=== PATIENT | male | born 1945 | race Caucasian/White ===

== ENCOUNTER 2017-04-03 08:53 | Outpatient (CLI) | payer MEDICARE ==
--- NOTE | 2017-04-03 14:16 | PET ---
PET CT OF BRAIN: Date: 04/03/17 HISTORY: 72-year-old male with other frontotemporal dementia. TECHNIQUE: PET CT of the brain was performed following the intravenous administration of 9.6 mCi [id number] in the right antecubital fossa. Imaging was performed after an uptake interval of 55 minutes. FINDINGS: There is hypometabolism in the temporal lobes bilaterally, right greater than left. There is normal F DG localization in the remainder of the brain. IMPRESSION: Bilateral temporal lobe hypometabolism. POS: HUSAM
== END 2017-04-03 08:54 | disposition home or self-care (01) ==
LOC: PET 08:53
PROVIDERS: ATTEND Psychiatry & Neurology Neurology
DX: G31.09 Other frontotemporal neurocognitive disorder (principal); R63.8 Other symptoms and signs concerning food and fluid intake
CPT/HCPCS: 78608; A9552

== ENCOUNTER 2023-07-04 12:34 | Emergency (ER) | payer MEDICARE ==
[2023-07-04 13:35] LABS: #Basophils 0.04 10x3/uL (0.0-0.2); %Basophils 0.4 % (0.0-1.0); %Eosinophils 1.2 % (0.0-10.0); %Lymphocytes 18.5 % (21.0-51.0); %Monocytes 6.8 % (0.0-10.0); %Neutrophils 72.8 % (42.0-75.0); Hematocrit 44.7 % (42.0-52.0); Hemoglobin 14.9 g/dL (14.0-18.0); Mean Corpuscular HGB CONC 33.3 g/dL (32.0-36.0); Mean Corpuscular Hemoglobin 30.2 pg (27.0-31.0); Mean Corpuscular Volume 90.5 fL (78.0-98.0); Mean Platelet Volume 8.5 fL (7.4-10.4); Platelet Count 222 10x3/uL (130-400); RBC Distribution Width 12.9 % (11.5-14.5); Red Blood Cell (RBC) Count 4.94 mill/uL (4.70-6.10)
[2023-07-04 13:43] LABS: Globulin 3.1 g/dL (2.4-3.5)
[2023-07-04 13:48] LABS: ALT (SGPT) 21 U/L (8-55); AST (SGOT) 15 U/L (5-34); Acetaminophen Less than 10 mcg/mL (10.0-30.0); Albumin 3.9 g/dL (3.4-4.8); Alcohol Less than 10.0 mg/dL (Less than 10); Alkaline Phosphatase 104 U/L (40-110); Anion Gap 12 mmol/L (10-20); BUN (Urea Nitrogen) 12 mg/dL (8.4-25.7); Bilirubin, Total 0.7 mg/dL (0.2-1.2); Calc. Creatinine Clearance 0 mL/min (70-130); Carbon Dioxide 28 mmol/L (23-31); Chloride 103 mmol/L (98-107); Estimated GFR 89; Glucose 124 mg/dL (83-110); Potassium 3.9 mmol/L (3.5-5.1); Salicylate Less than 8.0 mg/dL (15.0-30.0); Sodium 139 mmol/L (136-145)
[2023-07-04] MEDS ORDERED: Haloperidol Lactate 5 MG/ML VIAL ONE ×2 (13:53→15:14)
[2023-07-04 13:58] LABS: Troponin I Less than 0.010 ng/mL (< 0.028)
[2023-07-04 14:07] LABS: Bacteria/HPF None Seen HPF (None Seen); Bilirubin Negative (Negative); Blood, Urine Negative (Negative); CAUTI Indications for Culture Alt mental st,lethar; Clarity Clear (Clear); Glucose, Urine (Dipstick) Normal (Negative); Ketone, Urine Negative (Negative); Leukocyte Negative Leu/uL (Negative); Nitrite Negative (Negative); Protein, Urine (Dipstick) Negative (Neg-Trace); RBC/HPF None Seen HPF (0-3); Specific Gravity, Urine 1.009 (1.002-1.036); Squamous Epithelial 0-3 HPF (0-3); Urobilinogen Normal mg/dL (Less than 2); WBC/HPF None Seen HPF (0-3); pH, Urine 6.5 (5.0-9.0)
[2023-07-04 14:10] LABS: Urine Culture Reflex No No
[2023-07-04 14:15] LABS: Amphetamine Not Detected (NotDetected); Barbiturates Screen Not Detected (NotDetected); Benzodiazepine Screen Detected (NotDetected); Cocaine Metabolite Screen Not Detected (NotDetected); Methadone Not Detected (NotDetected); Methamphetamine Not Detected (NotDetected); Opiate Screen Not Detected (NotDetected); Oxycodone Screen Not Detected (NotDetected); Phencyclidine (PCP) Not Detected (NotDetected); THC/Cannabinoid Screen Not Detected (NotDetected); Tricyclic Screen Not Detected (NotDetected)
[2023-07-04] MEDS ORDERED: traZODone HCl 50 MG TAB ONE (21:29)
== END 2023-07-05 00:09 ==
LOC: ERS 12:34
DX: R45.1 Restlessness and agitation (principal); F03.90 Unspecified dementia, unspecified severity, without behavioral disturbance, psychotic disturbance, mood disturbance, and anxiety; I10 Essential (primary) hypertension
CPT/HCPCS: 36415; 51701; 70450; 71045; 80053; 80306; 80307; 81001; 82140; 83605; 83880; 84443; 84484; 85025; 93005; 96372; J1630

== ENCOUNTER 2023-08-15 15:52 | Emergency (ER) | payer MEDICARE ==
[2023-08-15] MEDS ORDERED: Haloperidol Lactate 5 MG/ML VIAL ONE (17:24)
== END 2023-08-15 21:58 ==
LOC: ERS 15:52
DX: Z00.00 Encounter for general adult medical examination without abnormal findings (principal); I10 Essential (primary) hypertension; I25.2 Old myocardial infarction
CPT/HCPCS: 82962; 99283; J1630; 36416

== ENCOUNTER 2023-09-16 15:33 | Emergency (ER) | payer MEDICARE ==
[2023-09-16] MEDS ORDERED: risperiDONE 1 MG TAB ONE (16:16)
[2023-09-16 16:35] LABS: #Basophils 0.03 10x3/uL (0.0-0.2); %Basophils 0.3 % (0.0-1.0); %Eosinophils 2.4 % (0.0-10.0); %Lymphocytes 22.2 % (21.0-51.0); %Monocytes 7.7 % (0.0-10.0); %Neutrophils 67.1 % (42.0-75.0); Hematocrit 39.9 % (42.0-52.0); Hemoglobin 13.2 g/dL (14.0-18.0); Mean Corpuscular HGB CONC 33.1 g/dL (32.0-36.0); Mean Corpuscular Hemoglobin 29.3 pg (27.0-31.0); Mean Corpuscular Volume 88.7 fL (78.0-98.0); Mean Platelet Volume 8.7 fL (7.4-10.4); Platelet Count 211 10x3/uL (130-400); RBC Distribution Width 12.5 % (11.5-14.5)
[2023-09-16 16:57] LABS: ALT (SGPT) 16 U/L (8-55); AST (SGOT) 15 U/L (5-34); Albumin 3.4 g/dL (3.4-4.8); Alkaline Phosphatase 74 U/L (40-110); Anion Gap 10 mmol/L (10-20); BUN (Urea Nitrogen) 19 mg/dL (8.4-25.7); Bilirubin, Total 0.3 mg/dL (0.2-1.2); Calc. Creatinine Clearance 0 mL/min (70-130); Calcium 9.7 mg/dL (7.8-10.44); Carbon Dioxide 28 mmol/L (23-31); Chloride 105 mmol/L (98-107); Estimated GFR 89; Globulin 2.4 g/dL (2.4-3.5); Glucose 100 mg/dL (83-110); Lipase 33 U/L (8-78); Potassium 4.2 mmol/L (3.5-5.1); Protein, Total 5.8 g/dL (5.8-8.1); Sodium 139 mmol/L (136-145)
[2023-09-16 16:59] LABS: Troponin I Less than 0.010 ng/mL (< 0.028)
[2023-09-16 18:43] LABS: Bacteria/HPF None Seen HPF (None Seen); Bilirubin Negative (Negative); Blood, Urine Negative (Negative); CAUTI Indications for Culture Alt mental st,lethar; Clarity Clear (Clear); Glucose, Urine (Dipstick) Normal (Negative); Ketone, Urine Negative (Negative); Leukocyte Negative Leu/uL (Negative); Nitrite Negative (Negative); Protein, Urine (Dipstick) Negative (Neg-Trace); RBC/HPF None Seen HPF (0-3); Specific Gravity, Urine 1.016 (1.002-1.036); Squamous Epithelial 0-3 HPF (0-3); Urobilinogen Normal mg/dL (Less than 2); WBC/HPF 0-3 HPF (0-3); pH, Urine 6.5 (5.0-9.0)
[2023-09-16 18:44] LABS: Urine Culture Reflex No No
[2023-09-16] MEDS ORDERED: Ziprasidone 20 MG VIAL ONE (19:28)
[2023-09-16] MEDS ORDERED: Sterile Water 10 ML ONE (19:29)
[2023-09-17] MEDS ORDERED: Ziprasidone 20 MG VIAL ONE ×2 (00:48→11:08)
[2023-09-17] MEDS ORDERED: Water For Inject, Bacteriostat 30 ML ONE (00:49)
[2023-09-17] MEDS ORDERED: Lorazepam 2 MG/ML VIAL ONE (03:31)
[2023-09-17] MEDS ORDERED: diphenhydrAMINE 50 MG/ML VIAL ONE (03:45)
[2023-09-17] MEDS ORDERED: Sterile Water 10 ML ONE (11:09)
== END 2023-09-17 11:44 ==
LOC: ERS 15:33 → EEVIPCON 15:33 → ERS 09-17 11:44
DX: R45.1 Restlessness and agitation (principal); F03.90 Unspecified dementia, unspecified severity, without behavioral disturbance, psychotic disturbance, mood disturbance, and anxiety; I10 Essential (primary) hypertension; I25.2 Old myocardial infarction; Z79.899 Other long term (current) drug therapy; Z79.82 Long term (current) use of aspirin
CPT/HCPCS: 70450; 71045; 81001; 83690; 84484; 93005; 96372; 96374; 96375; 99285; J1200; J2060; J3486 ×2; 80053; 84443; 85025